=== PATIENT | male | born 1990 | race Caucasian/White ===

== ENCOUNTER 2022-04-27 21:07 | Emergency (ER) | payer SELFPAY | END 2022-04-27 21:55 | disposition home or self-care (01) | LOC: NAV ERS 21:07 | DX: U07.1 COVID-19 (principal); R06.4 Hyperventilation; E11.9 Type 2 diabetes mellitus without complications; I10 Essential (primary) hypertension; Z79.899 Other long term (current) drug therapy; Z79.84 Long term (current) use of oral hypoglycemic drugs; Z87.891 Personal history of nicotine dependence | CPT/HCPCS: 99284 ==